=== PATIENT | female | born 1935 | race Caucasian/White ===

== ENCOUNTER 2019-07-21 13:27 | Outpatient (CLI) | payer MEDICARE, OTHER ==
[~2019-07-21 13:27] MED LIST: ASPI81TA45 PO; CALC-534 PO; CALCIUM PO; OCUVITE SOFTGE1 EACH PO; ST. JOHN'S WORT PO; ST.150CA PO
== END 2019-07-21 23:59 | disposition home or self-care (01) ==
LOC: CVU 13:27
PROVIDERS: ATTEND Internal Medicine Cardiovascular Disease
DX: I08.8 Other rheumatic multiple valve diseases (principal)
CPT/HCPCS: 93306; 93356

== ENCOUNTER → 2019-08-10 | Outpatient (CLI) | payer MEDICARE, OTHER ==
[~2019-08-10] MED LIST changes: +VISIPAQUE 320 MG/ML, 150ML BOTTLE ONE
[2019-08-10 10:40] LABS: CREATININE 0.66 mg/dL (0.55-1.02)
== END | disposition home or self-care (01) ==
LOC: CVU 08:53
PROVIDERS: ATTEND Internal Medicine Cardiovascular Disease
DX: I65.23 Occlusion and stenosis of bilateral carotid arteries (principal); K86.2 Cyst of pancreas; I35.0 Nonrheumatic aortic (valve) stenosis
CPT/HCPCS: 36415; 71275; 74174; 82565; 93880; Q9967

== ENCOUNTER → 2019-09-27 | Outpatient (CLI) | payer MEDICARE, OTHER ==
[~2019-09-27] MED LIST changes: +OMNIPAQUE 350 MG/ML, 100ML BOTTLE ONE; -VISIPAQUE 320 MG/ML, 150ML BOTTLE ONE
== END | disposition home or self-care (01) ==
LOC: CFH 14:04
PROVIDERS: ATTEND Student in an Organized Health Care Education/Training Program
DX: R19.09 Other intra-abdominal and pelvic swelling, mass and lump (principal); K76.89 Other specified diseases of liver; K82.0 Obstruction of gallbladder
CPT/HCPCS: 74170; 82565; Q9967